=== PATIENT | male | born 1985 | race Two or more races ===

== ENCOUNTER 2022-01-21 12:33 | Emergency (ER) | payer OTHER ==
[2022-01-22] MEDS ORDERED: KEFLEX CAP 250250 MG PO (15:11)
[2022-01-22] MEDS ORDERED: ROXICODONE TAB 55 MG PO (15:11)
== END 2022-01-21 16:27 | disposition home or self-care (01) ==
LOC: ER1 12:33
DX: S62.632B Displaced fracture of distal phalanx of right middle finger, initial encounter for open fracture (principal); W31.89XA Contact with other specified machinery, initial encounter; Y92.009 Unspecified place in unspecified non-institutional (private) residence as the place of occurrence of the external cause; Y99.0 Civilian activity done for income or pay
CPT/HCPCS: 73140; 90471; 90715; 96374; 99283; J0690

== ENCOUNTER → 2022-01-22 | Day surgery (SDC) | payer OTHER ==
[~2022-01-22] MED LIST: KEFLEX CAP 250250 MG PO; ROXICODONE TAB 55 MG PO
== END | disposition home or self-care (01) ==
LOC: OR 11:00
DX: S67.192A Crushing injury of right middle finger, initial encounter (principal); S62.632B Displaced fracture of distal phalanx of right middle finger, initial encounter for open fracture; Z20.822 Contact with and (suspected) exposure to COVID-19; X58.XXXA Exposure to other specified factors, initial encounter
CPT/HCPCS: J0690; J1100; J2001; J2250; J2405; J2704; J3010; J7120; U0002